=== PATIENT | female | born 1960 | race Two or more races ===

== ENCOUNTER 2021-06-14 12:50 | Outpatient (CLI) | payer OTHER | END 2021-06-14 12:51 | disposition home or self-care (01) | LOC: SONOGRAMA 12:50 | PROVIDERS: ATTEND Surgery | DX: D05.11 Intraductal carcinoma in situ of right breast (principal); N60.11 Diffuse cystic mastopathy of right breast; N60.12 Diffuse cystic mastopathy of left breast ==

== ENCOUNTER 2021-10-01 06:12 | Day surgery (SDC) | payer OTHER ==
[~2021-10-01] VITALS: Ht 154.9 cm; Wt 64.0 kg
[~2021-10-01 06:12] MED LIST: AVALIDE 300-121 EACH PO; LIPITOR20 MG PO; NORVASC5 MG PO
== END 2021-10-01 17:25 | disposition home or self-care (01) ==
LOC: CIR.AMB 06:12
PROVIDERS: ATTEND Surgery
DX: C50.811 Malignant neoplasm of overlapping sites of right female breast (principal); C50.411 Malignant neoplasm of upper-outer quadrant of right female breast; R59.0 Localized enlarged lymph nodes; Z88.2 Allergy status to sulfonamides; Z20.822 Contact with and (suspected) exposure to COVID-19; I10 Essential (primary) hypertension
CPT/HCPCS: 19303; 19340; 38525; 78195; C1789; A9541

== ENCOUNTER 2022-05-27 05:30 | Day surgery (SDC) | payer OTHER ==
[~2022-05-27] VITALS: Ht 154.9 cm; Wt 63.0 kg
== END 2022-05-27 15:45 | disposition home or self-care (01) ==
LOC: CIR.AMB 05:30
PROVIDERS: ATTEND Surgery
DX: C50.412 Malignant neoplasm of upper-outer quadrant of left female breast (principal); Z90.12 Acquired absence of left breast and nipple; R59.0 Localized enlarged lymph nodes; I10 Essential (primary) hypertension; F17.210 Nicotine dependence, cigarettes, uncomplicated; Z88.0 Allergy status to penicillin; Z88.2 Allergy status to sulfonamides; Z91.013 Allergy to seafood
CPT/HCPCS: 19303; 38525; 38792; 19340; A9541

== ENCOUNTER 2024-07-04 12:00 | Day surgery (SDC) | payer OTHER ==
[~2024-07-04 12:00] MED LIST changes: +ANASTROZOLE1 MG PO; +FARXIGA10 MG PO; +FOLIC ACID0.4 MG PO; +ZOLOFT100 MG PO
[2024-07-04] MEDS ORDERED: CLINDAMYCIN PHOSPHATE 150 MG/ML (900mg) ONE (15:09)
[2024-07-04] MEDS ORDERED: POVIDONE-IODINE 118 ML BOTT TOP ONE (16:45)
[2024-07-04] MEDS ORDERED: ZITHROMAX TRI-500 MG PO (17:36)
[2024-07-04] MEDS ORDERED: TYLENOL325 MG PO (17:36)
[2024-07-04] MEDS ORDERED: KETOROLAC TROMETHAMINE 60 MG VIAL IM STA (17:37)
[2024-07-04] MEDS ORDERED: RINGERS SOLUTION,LACTATED 1,000 ML IV SCH (17:45)
[2024-07-04] MEDS ORDERED: KETOROLAC TROMETHAMINE 30 MG VIAL ONE (18:42)
== END 2024-07-04 22:25 | disposition home or self-care (01) ==
LOC: CIR.AMB 12:00
PROVIDERS: ATTEND Obstetrics & Gynecology
DX: N84.0 Polyp of corpus uteri (principal); I10 Essential (primary) hypertension; E78.5 Hyperlipidemia, unspecified; Z88.2 Allergy status to sulfonamides; Z88.0 Allergy status to penicillin; Z91.013 Allergy to seafood